=== PATIENT | female | born 1945 | race Caucasian/White ===

== ENCOUNTER → 2016-11-10 | Outpatient (CLI) | payer MEDICARE ==
--- NOTE | 2016-11-17 13:32 | RADIOLOGY REPORT PS360 ---
EXAM: CT LUNG LOW DOSE WO CONTRAST COMPARISON: None HISTORY: At least 1 pack per day for 44 years. = Over 44 pack-year TECHNIQUE: The exam was performed on a [employer] Light Speed [address] scanner using 3.0 mGy CTDI. A low dose helical CT CHEST was performed on a multi-detector scanner The LDCT was performed in a facility that meets the criteria for the screening program. Data regarding this exam was submitted to [employer] which is an approved registry. The order for this exam indicates that it came as a result of a lung cancer screening counseling shard decision-making visit that included all the elements required of such a visit including smoking cessation. The radiologist interpreting this exam meets the [facility] criteria for the LDCT lung cancer screening program. The exam is reported using the Lung-RADS classification scale and reported to the ACR registry. NOTE: This study was performed for the specific purposes of lung cancer screening and is not an alternative to diagnostic chest CT. RADIATION DOSE: CTDI vol(CT dose Index-volume) = 2.95mGy DLP (Dose Length Product) = 108.90 mGy-cm FINDINGS: No suspicious lung mass nor highly suspicious nodule: Indeterminate/Non-actionable Nodules(Category2): There is a linear density along the to the along the inferior margin of the minor fissure. This involving the right middle lobe. This measures up to 12 mm length x 6.4 mm vertical x 11 mm AP. The as seen on sagittal image 29, coronal 42 axial 43. 44.. Given its linear character along the fissure favor benign feature. However does warrant follow-up in 6 months. No associated calcifications .. Mild apical pleural scarring bilaterally most of the right. Has benign appearance but would benefit from follow-up as well. LUNG PARENCHYMA Emphysema: Mild hyperexpansion Mild centrilobular emphysematous changes Airways disease: Not apparent Fibrosis: Scant fibrotic changes at periphery of the apices EVIDENT. Equivocal.q MEDIASTINUM. No hilar nor mediastinal mass nor adenopathy. . Heart. Coronary artery calcification. Moderate most evident LAD and right coronary. Scant pericardial effusion barely evident heart normal size Uppermost abdomen. No significant pathology Left adrenal generous upper normal. Left lobe liver extends far leftward. Spleen normal size Mild degenerative changes throughout the T-spine evident IMPRESSION: 1. Lung RADS Category: 2 Linear density along the inferior margin of the minor fissure. Most likely benign features but would benefit from 6 month follow-up 2. Early emphysematous changes Mild chronic lung changes 3. Coronary calcification. Moderate. RECOMMENDATIONS: 6 monthd LDCT follow-up
--- NOTE | 2016-11-17 13:52 | RADIOLOGY REPORT PS360 ---
DIG MAMM-SCREEN RUI W/CAD CAD Screening ORDERING PHYSICIAN : Petr Milan MD PATIENT AGE: 71 years GENDER: Female COMPARISON: Previous mammograms: Right breast February 2014 , bilateral mammogram January 2014, December 2012 Also January 2005 and December 2007.-film screen mammogram INDICATION: Routine screening 71-year-old no hormones. Family history. Sister with breast cancer age 44. Aunt postmenopausal TECHNIQUE: Standard CC and MLO images were obtained. R2 CAD reviewed. FINDINGS: Dense breast bilaterally decreased sensitivity mammography. RIGHT BREAST: Although somewhat limited due to the dense character Areas of mild asymmetric density again seen at the deep breast upper-outer quadrant right breast appears similar to studies dating back to 2004 2007. Similar density in 2013 also noted. No progression of findings. No significant new features. Given the stability follow-up in one year the adequate and recommended one year follow-up should be encouraged and emphasized. In this dense breasts. LEFT BREAST: Appears stable with no significant new features. If any palpable areas should arise ultrasound is recommended breast this density to compliment mammography IMPRESSION: Dense breast bilaterally continue for age. This decreases sensitivity mammography Areas of asymmetric density for example upper-outer quadrant right breast are again noted and have not changed appreciably since prior comparison studies. Follow-up in one year recommended and should be encouraged and emphasized. Self breast examination be encouraged with ultrasound of a palpable areas arise in this dense breast BI-RADS CATEGORY: 2_Benign RECOMMENDED FOLLOWUP: 12M 12 MONTH FOLLOW-UP (A letter has been sent to the patient regarding results of the study.)
== END ==
LOC: RAD 13:42
DX: Z12.31 Encounter for screening mammogram for malignant neoplasm of breast (principal); Z87.891 Personal history of nicotine dependence; Z12.2 Encounter for screening for malignant neoplasm of respiratory organs
CPT/HCPCS: G0202; G0297